=== PATIENT | female | born 1975 | race Caucasian/White ===

== ENCOUNTER 2021-06-07 11:16 | Day surgery (SDC) | payer OTHER ==
[2021-06-07] MEDS ORDERED: BUPIVACAINE 0.5% VIAL IJ ONE (11:17)
[2021-06-07] MEDS ORDERED: Depo-Medrol 40 MG/ML IM ONE (11:17)
[2021-06-07] MEDS ORDERED: DIPRIVAN 200 MG/20 ML IV ONE (13:57)
[2021-06-07] MEDS ORDERED: Lactated Ringers 1,000 ML IV ONE (14:15)
--- NOTE | 2021-06-07 14:49 | XRAY ---
Indication: Left SI joint injection. Intraoperative fluoroscopy provided for 7 seconds. 2 digital spot images submitted for interpretation demonstrates posterior needle tip projecting over the inferior left SI joint. Correlate with intraoperative findings/report.
--- NOTE | 2021-06-07 15:08 | XRAY ---
7 seconds fluoroscopy time in surgery for injection of the left SI joint.
== END 2021-06-07 14:21 | disposition home or self-care (01) ==
LOC: SDC-PAIN 11:16
PROVIDERS: ATTEND Psychiatry & Neurology Pain Medicine
DX: M46.1 Sacroiliitis, not elsewhere classified (principal); Z79.899 Other long term (current) drug therapy
CPT/HCPCS: 27096; 72100; 77002; 84703; G0260; J1030; J2704